=== PATIENT | male | born 1940 | race Caucasian/White ===

== ENCOUNTER 2019-10-05 20:42 | Emergency (ER) | payer MEDICARE, MEDICAID ==
[~2019-10-05] VITALS: Ht 188 cm; Wt 93.0 kg
--- NOTE | 2019-10-05 20:59 | PHYS DOC ---
Past Medical History Past Medical History: Cancer Smoking Status: Unknown if ever smoked Drug Use: None General Adult EDM: Chief Complaint: CHEST PAIN HPI: HPI: 79-year-old male presents with substernal chest pain that began just prior to arrival. Patient states it is midsternal pain that is been better with 2 nitroglycerin prior to arrival. Patient had ST elevations on EKG prior to arrival and Dog Handler was activated prior to arrival. Patient's pain is moderate right now and was severe at onset. Patient had some shortness of breath as well. Patient does have a history of lymphoma and received chemotherapy yesterday. Review of Systems: Review of Systems: Constitutional: Denies fever or chills. [] Eyes: Denies change in visual acuity. [] HENT: Denies nasal congestion or sore throat. [] Respiratory: Denies cough does complain of mild shortness of breath Cardiovascular: Complains of chest GI: Denies abdominal pain, nausea, vomiting, bloody stools or diarrhea. [] : Denies dysuria. [] Musculoskeletal: Denies back pain or joint pain. [] Integument: Denies rash. [] Neurologic: Denies headache, focal weakness or sensory changes. [] Endocrine: Denies polyuria or polydipsia. [] Lymphatic: Denies swollen glands. [] Psychiatric: Denies depression or anxiety. [] Heart Score: HEART Score for Chest Pain: HEART Score for Chest Pain Response (Comments) Value History Highly Suspicious [address] Depression 2 Age > 65 2 Risk Factors 1 or 2 Risk Factors 1 Troponin >3 x Normal Limit 2 Total 9 Risk Factors: Risk Factors: DM, Current or recent (<one month) smoker, HTN, HLP, family history of CAD, obesity. Risk Scores: Score 0 - 3: 2.5% MACE over next 6 weeks - Discharge Home Score 4 - 6: 20.3% MACE over next 6 weeks - Admit for Clinical Observation Score 7 - 10: 72.7% MACE over next 6 weeks - Early Invasive Strategies Current Medications: Current Medications Medications (Trade) Dose Ordered Sig/Terrell Start Time Stop Time Status Last Admin Dose Admin Heparin Sodium (Porcine) (Heparin Sodium) 4,000 unit 1X ONCE 10/05/19 21:00 10/05/19 21:01 UNV Physical Exam: PE: Constitutional: Well developed, well nourished, mild distress HENT: Normocephalic, atraumatic, bilateral external ears normal, oropharynx moist, no oral exudates, nose normal. [] Eyes: PERRLA, EOMI, conjunctiva normal, no discharge. [] Neck: Normal range of motion, no tenderness, supple, no stridor. [] Cardiovascular:Heart rate regular rhythm, no murmur [] Lungs & Thorax: Bilateral breath sounds clear to auscultation [] Abdomen: Bowel sounds normal, soft, no tenderness, no masses, no pulsatile jerri s. [] Skin: Warm, dry, no erythema, no rash. [] Back: No tenderness, no CVA tenderness. [] Extremities: No tenderness, no cyanosis, no clubbing, ROM intact, no edema. [] Neurologic: Alert and oriented X 3, normal motor function, normal sensory function, no focal deficits noted. [] Psychologic: Affect normal, judgement normal, mood normal. [] EKG: EKG: [] Prehospital EKG interpreted by me sinus rhythm with a rate of [address] elevations in V2 V3 V4 with reciprocal inferior changes EKG in the emergency room showed normal sinus rhythm with a rate of 82 left axis deviation broad-based T waves in the precordial leads as well as 1 and L consistent with acute AR Radiology/Procedures: Radiology/Procedures: [] Course & Med Decision Making: Course & Med Decision Making Pertinent Labs and Imaging studies reviewed. (See chart for details) [] Patient received aspirin prior to arrival as well as nitroglycerin. Patient given 4000 units of heparin here patient will be admitted to the hospital service and go to the Dog Handler for emergent angioplasty. I discussed with Dr. Isabel prior to arrival and upon arrival in the ER. I also discussed the case with the hospitalist who admit the patient. Critical care time was [30] minutes which includes time at bedside, spent in discussion of patient's care with specialist and/or family members, with interpretation of laboratory and/or radiological studies and is exclusive of procedures. Critical care time was [303] minutes exclusive of procedures. Critical conditions STEMI critical interventions STEMI activation, heparin, multiple consults. Dragon Disclaimer: Dragon Disclaimer: This electronic medical record was generated, in whole or in part, using a voice recognition dictation system. Departure Departure Impression: Primary Impression: STEMI (ST elevation myocardial infarction) Disposition: 09 ADMITTED INPATIENT Condition: GUARDED Justicifation of Admission Dx: Justifications for Admission: Justification of Admission Dx: Yes AR: Acute STEMI SEAN JEFF MD Oct 05, 2019 20:59
[2019-10-05] MEDS ORDERED: LIDOCAINE 1% Multi-Dose 20 ML VIAL. ONE (21:06)
[2019-10-05] MEDS ORDERED: fentaNYL PF VIAL 100 MCG/2 ML VIAL ONE (21:06)
[2019-10-05] MEDS ORDERED: MIDAZOLAM HCL/PF 2 MG/2 ML VIAL. ONE (21:06)
[2019-10-05] MEDS ORDERED: IODIXANOL 320 MG/ML 100 ML VIAL. ONE ×2 (21:06→21:55)
[2019-10-05 21:14] LABS: CREATININE ISTAT 1.6 mg/dL (0.5-1.4); HEMOGLOBIN ISTAT 12.9 g/dL (14-18); ION CA ISTAT 1.07 mmol/L (1.13-1.32); POTASSIUM ISTAT 4.8 mmol/L (3.5-5.0)
[2019-10-05 21:17] LABS: BASO % 0 % (0-3); EOS # 0.1 x10^3/uL (0.0-0.7); EOS % 2 % (0-3); HEMATOCRIT 36.9 % (39.0-53.0); HEMOGLOBIN 13.2 g/dL (13.0-17.5); LYMPH # 0.4 x10^3/uL (1.0-4.8); LYMPH % 4 % (24-48); MEAN CORPUSCULAR HEMOGLOBIN 34 pg (25-35); MEAN CORPUSCULAR HGB CONC 36 g/dL (31-37); MEAN CORPUSCULAR VOLUME 94 fL (79-100); MONO # 0.4 x10^3/uL (0.0-1.1); MONO % 4 % (0-9); NEUT # 8.2 x10^3/uL (1.8-7.7); NEUT % 90 % (31-73); PLATELET COUNT 240 x10^3/uL (140-400); RED BLOOD COUNT 3.93 x10^6/uL (4.30-5.70); RED CELL DISTRIBUTION WIDTH 14.5 % (11.5-14.5); WHITE BLOOD COUNT 9.2 x10^3/uL (4.0-11.0)
[2019-10-05 21:24] LABS: PROTHROMBIN TIME PATIENT 12.6 SEC (11.7-14.0)
--- NOTE | 2019-10-05 21:27 | RAD ---
INDICATION: Reason: cp / Spl. Instructions: / History: COMPARISON: None. FINDINGS: Single view of chest obtained. Mediastinal silhouette is mildly prominent with pacemaker. Calcific atherosclerosis. Mild interstitial opacities bilaterally with more confluent component and lung bases IMPRESSION: * Mild interstitial opacities bilaterally with more confluent component at lung bases. Could be secondary to mild edema or interstitial infiltrate. The lung base component could be from atelectasis or infiltrate. Electronically signed by: Ankit Miller MD (10/05/2019 9:24 PM) [id number]
[2019-10-05 21:30] LABS: CALCIUM 8.7 mg/dL (8.5-10.1); CREATININE 1.9 mg/dL (0.7-1.3); GFR 34.3; POTASSIUM 4.8 mmol/L (3.5-5.1)
[2019-10-05] MEDS ORDERED: HEPARIN for IV BOLUS 10,000 UNIT/10 ML VIAL. IV ONE ×2 (21:30→23:00)
[2019-10-05 21:36] LABS: ALBUMIN 3.2 g/dL (3.4-5.0); TOTAL BILIRUBIN 0.5 mg/dL (0.2-1.0); TOTAL PROTEIN 6.5 g/dL (6.4-8.2)
[2019-10-05] MEDS ORDERED: BIVALIRUDIN 250 MG VIAL. IV ONE ×2 (21:39→23:00)
[2019-10-05 21:58] LABS: % BANDS 2 % (0-9); % EOS 2 % (0-5); % LYMPHS 1 % (24-48); % MONOS 5 % (0-10); % SEGS 90 % (35-66); PLT ESTIMATE ADEQUATE (ADEQUATE)
[2019-10-05] MEDS ORDERED: HEPARIN 25,000UTS/250ML PREMIX 250 ML IV ONE (22:22)
[2019-10-05] MEDS ORDERED: HEPARIN for IV BOLUS 10,000 UNIT/10 ML VIAL. ONE (22:23)
[2019-10-05] MEDS ORDERED: HEPARIN 25,000UTS/250ML PREMIX 250 ML IV PRN (22:30)
[2019-10-05] MEDS ORDERED: MIDAZOLAM HCL/PF 2 MG/2 ML VIAL. IV ONE (23:00)
[2019-10-05] MEDS ORDERED: fentaNYL PF VIAL 100 MCG/2 ML VIAL IV ONE (23:00)
[2019-10-05] MEDS ORDERED: LIDOCAINE 1% Multi-Dose 20 ML VIAL. INJ ONE (23:00)
[2019-10-05] MEDS ORDERED: IODIXANOL 320 MG/ML 100 ML VIAL. IART ONE (23:00)
--- NOTE | 2019-10-05 23:21 | PDOC2 ---
CONSULT Date of Consult Date of Consult DATE: 10/05/19 TIME: 23:10 Reason for Consult Reason for Consult: chest pain Referring Physician Referring Physician: Dr. Cortez Identification/Chief Complaint Chief Complaint Chest pain Source Source: Chart review, Patient History of Present Illness Reason for Visit: The patient is an 79 year old male being treated with chemo for lymphoma who developed chest pressure at home. Paramedics were called and his EKG showed anterior ST elevations. He was treated with SL NTG which significantly decreased his pain. In the ER he continues to have pain but it has further decreased. His EKG continues to show anterior ST changes. Past Medical History Cardiovascular: HTN Hepatobiliary: Other (lymphoma) Endocrine: Diabetes Past Surgical History Past Surgical History: Other (Stents to his right lower extremity) Family History Family History: Hypertension Social History No Current Problem List Problem List Problems Medical Problems: (1) STEMI (ST elevation myocardial infarction) Status: Acute Current Medications Current Medications Current Medications Heparin Sodium (Porcine) (Heparin Sodium) 4,000 unit 1X ONCE IV Last administered on 10/05/19at 21:19; Start 10/05/19 at 21:30; Stop 10/05/19 at 21:31; Status DC Fentanyl Citrate (Fentanyl 2ml Vial) 100 mcg STK-MED ONCE .ROUTE ; Start 10/05/19 at 21:06; Stop 10/05/19 at 21:06; Status DC Midazolam HCl (Versed) 2 mg STK-MED ONCE .ROUTE ; Start 10/05/19 at 21:06; Stop 10/05/19 at 21:06; Status DC Iodixanol (Visipaque 320) 100 ml STK-MED ONCE .ROUTE ; Start 10/05/19 at 21:06; Stop 10/05/19 at 21:06; Status DC Lidocaine HCl (Lidocaine 1% 20ml Vial) 20 ml STK-MED ONCE .ROUTE ; Start 10/05/19 at 21:06; Stop 10/05/19 at 21:06; Status DC Heparin Sodium/ Sodium Chloride 1,000 ml @ As Directed STK-MED ONCE .ROUTE ; Start 10/05/19 at 21:06; Stop 10/05/19 at 21:07; Status DC Bivalirudin (Angiomax) 250 mg STK-MED ONCE IV ; Start 10/05/19 at 21:39; Stop 10/05/19 at 21:39; Status DC Iodixanol (Visipaque 320) 100 ml STK-MED ONCE .ROUTE ; Start 10/05/19 at 21:55; Stop 10/05/19 at 21:55; Status DC Heparin Sodium/ Sodium Chloride (HEPARIN for ARTERIAL LINE FLUSH) 1,000 unit 1X ONCE IART Last administered on 10/05/19at 22:48; Start 10/05/19 at 23:00; Stop 10/05/19 at 23:01; Status DC Heparin Sodium/ Sodium Chloride (HEPARIN for ARTERIAL LINE FLUSH) 1,000 unit 1X ONCE IART Last administered on 10/05/19at 22:48; Start 10/05/19 at 23:00; Stop 10/05/19 at 23:01; Status DC Midazolam HCl (Versed) 2 mg 1X ONCE IV ; Start 10/05/19 at 23:00; Stop 10/05/19 at 23:01; Status DC Fentanyl Citrate (Fentanyl 2ml Vial) 100 mcg 1X ONCE IV ; Start 10/05/19 at 23 :00; Stop 10/05/19 at 23:01; Status DC Iodixanol (Visipaque 320) 100 ml 1X ONCE IART Last administered on 10/05/19at 22:49; Start 10/05/19 at 23:00; Stop 10/05/19 at 23:01; Status DC Bivalirudin (Angiomax) 250 mg 1X ONCE IV ; Start 10/05/19 at 23:00; Stop 10/05/19 at 23:01; Status DC Lidocaine HCl (Lidocaine 1% 20ml Vial) 20 ml 1X ONCE INJ Last administered on 10/05/19at 22:49; Start 10/05/19 at 23:00; Stop 10/05/19 at 23:01; Status DC Heparin Sodium/ Dextrose 250 ml @ As Directed STK-MED ONCE IV ; Start 10/05/19 at 22:22; Stop 10/05/19 at 22:22; Status DC Heparin Sodium (Porcine) (Heparin Sodium) 10,000 unit STK-MED ONCE .ROUTE ; Start 10/05/19 at 22:23; Stop 10/05/19 at 22:23; Status DC Heparin Sodium/ Sodium Chloride 500 ml @ As Directed STK-MED ONCE .ROUTE ; Start 10/05/19 at 22:34; Stop 10/05/19 at 22:34; Status DC Heparin Sodium (Porcine) (Heparin Sodium) 2,000 unit 1X ONCE IV ; Start 10/05/19 at 23:00; Stop 10/05/19 at 23:01; Status DC Heparin Sodium/ Dextrose 250 ml @ 10 mls/hr CONT PRN IV PER PROTOCOL; Start 10/05/19 at 22:30 Allergies Allergies: Coded Allergies: No Known Drug Allergies (Unverified , 10/05/19) ROS Respiratory: YES: Shortness of breath Cardiovascular: yes Chest Pain Physical Exam General: mild distress HEENT: Atraumatic Lungs: Other (Mildly decreased breath sounds) Heart: Regular rate Abdomen: Normal bowel sounds Vitals VITALS Vital Signs Date Time Temp Pulse Resp B/P (MAP) Pulse Ox O2 Delivery O2 Flow Rate FiO2 10/05/19 21:15 72 18 148/76 (100) 97 Room Air 10/05/19 20:44 97.4 97.4 Labs Labs Laboratory Tests Test 10/05/19 21:00 10/05/19 21:08 White Blood Count 9.2 x10^3/uL (4.0-11.0) Red Blood Count 3.93 x10^6/uL (4.30-5.70) Hemoglobin 13.2 g/dL (13.0-17.5) Hematocrit 36.9 % (39.0-53.0) Mean Corpuscular Volume 94 fL (79-100) Mean Corpuscular Hemoglobin 34 pg (25-35) Mean Corpuscular Hemoglobin Concent 36 g/dL (31-37) Red Cell Distribution Width 14.5 % (11.5-14.5) Platelet Count 240 x10^3/uL (140-400) Neutrophils (%) (Auto) 90 % (31-73) Lymphocytes (%) (Auto) 4 % (24-48) Monocytes (%) (Auto) 4 % (0-9) Eosinophils (%) (Auto) 2 % (0-3) Basophils (%) (Auto) 0 % (0-3) Neutrophils # (Auto) 8.2 x10^3/uL (1.8-7.7) Lymphocytes # (Auto) 0.4 x10^3/uL (1.0-4.8) Monocytes # (Auto) 0.4 x10^3/uL (0.0-1.1) Eosinophils # (Auto) 0.1 x10^3/uL (0.0-0.7) Basophils # (Auto) 0.0 x10^3/uL (0.0-0.2) Segmented Neutrophils % 90 % (35-66) Band Neutrophils % 2 % (0-9) Lymphocytes % 1 % (24-48) Monocytes % 5 % (0-10) Eosinophils % 2 % (0-5) Platelet Estimate Adequate (ADEQUATE) Prothrombin Time 12.6 SEC (11.7-14.0) Prothromb Time International Ratio 1.0 (0.8-1.1) Activated Partial Thromboplast Time 27 SEC (24-38) Sodium Level 132 mmol/L (136-145) Potassium Level 4.8 mmol/L (3.5-5.1) Chloride Level 98 mmol/L (98-107) Carbon Dioxide Level 23 mmol/L (21-32) Anion Gap 11 (6-14) 19 mmol/L (6-14) Blood Urea Nitrogen 29 mg/dL (8-26) Creatinine 1.9 mg/dL (0.7-1.3) Estimated GFR (Cockcroft-Gault) 34.3 BUN/Creatinine Ratio 15 (6-20) Glucose Level 339 mg/dL (70-99) 326 mg/dL (70-99) Calcium Level 8.7 mg/dL (8.5-10.1) Total Bilirubin 0.5 mg/dL (0.2-1.0) Aspartate Amino Transf (AST/SGOT) 19 U/L (15-37) Alanine Aminotransferase (ALT/SGPT) 27 U/L (16-63) Alkaline Phosphatase 58 U/L (46-116) Troponin I Quantitative 0.336 ng/mL (0.000-0.055) AS-Uqv-W-Type Natriuretic Peptide 822 pg/mL (0-449) Total Protein 6.5 g/dL (6.4-8.2) Albumin 3.2 g/dL (3.4-5.0) Albumin/Globulin Ratio 1.0 (1.0-1.7) Bedside Hemoglobin 12.9 g/dL (14-18) Bedside Hematocrit 38 % (37-52) Bedside Sodium 132 mmol/L (135-145) Bedside Potassium 4.8 mmol/L (3.5-5.0) Bedside Chloride 99 mmol/L (98-110) Bedside Total CO2 19 mmol/L (23-32) Bedside Blood Urea Nitrogen 27 mg/dL (8-26) Bedside Creatinine 1.6 mg/dL (0.5-1.4) Bedside Ionized Calcium (Michelle) 1.07 mmol/L (1.13-1.32) Laboratory Tests Test 10/05/19 21:00 10/05/19 21:08 White Blood Count 9.2 x10^3/uL (4.0-11.0) Red Blood Count 3.93 x10^6/uL (4.30-5.70) Hemoglobin 13.2 g/dL (13.0-17.5) Hematocrit 36.9 % (39.0-53.0) Mean Corpuscular Volume 94 fL (79-100) Mean Corpuscular Hemoglobin 34 pg (25-35) Mean Corpuscular Hemoglobin Concent 36 g/dL (31-37) Red Cell Distribution Width 14.5 % (11.5-14.5) Platelet Count 240 x10^3/uL (140-400) Neutrophils (%) (Auto) 90 % (31-73) Lymphocytes (%) (Auto) 4 % (24-48) Monocytes (%) (Auto) 4 % (0-9) Eosinophils (%) (Auto) 2 % (0-3) Basophils (%) (Auto) 0 % (0-3) Neutrophils # (Auto) 8.2 x10^3/uL (1.8-7.7) Lymphocytes # (Auto) 0.4 x10^3/uL (1.0-4.8) Monocytes # (Auto) 0.4 x10^3/uL (0.0-1.1) Eosinophils # (Auto) 0.1 x10^3/uL (0.0-0.7) Basophils # (Auto) 0.0 x10^3/uL (0.0-0.2) Segmented Neutrophils % 90 % (35-66) Band Neutrophils % 2 % (0-9) Lymphocytes % 1 % (24-48) Monocytes % 5 % (0-10) Eosinophils % 2 % (0-5) Platelet Estimate Adequate (ADEQUATE) Prothrombin Time 12.6 SEC (11.7-14.0) Prothromb Time International Ratio 1.0 (0.8-1.1) Activated Partial Thromboplast Time 27 SEC (24-38) Sodium Level 132 mmol/L (136-145) Potassium Level 4.8 mmol/L (3.5-5.1) Chloride Level 98 mmol/L (98-107) Carbon Dioxide Level 23 mmol/L (21-32) Anion Gap 11 (6-14) 19 mmol/L (6-14) Blood Urea Nitrogen 29 mg/dL (8-26) Creatinine 1.9 mg/dL (0.7-1.3) Estimated GFR (Cockcroft-Gault) 34.3 BUN/Creatinine Ratio 15 (6-20) Glucose Level 339 mg/dL (70-99) 326 mg/dL (70-99) Calcium Level 8.7 mg/dL (8.5-10.1) Total Bilirubin 0.5 mg/dL (0.2-1.0) Aspartate Amino Transf (AST/SGOT) 19 U/L (15-37) Alanine Aminotransferase (ALT/SGPT) 27 U/L (16-63) Alkaline Phosphatase 58 U/L (46-116) Troponin I Quantitative 0.336 ng/mL (0.000-0.055) XS-Sda-B-Type Natriuretic Peptide 822 pg/mL (0-449) Total Protein 6.5 g/dL (6.4-8.2) Albumin 3.2 g/dL (3.4-5.0) Albumin/Globulin Ratio 1.0 (1.0-1.7) Bedside Hemoglobin 12.9 g/dL (14-18) Bedside Hematocrit 38 % (37-52) Bedside Sodium 132 mmol/L (135-145) Bedside Potassium 4.8 mmol/L (3.5-5.0) Bedside Chloride 99 mmol/L (98-110) Bedside Total CO2 19 mmol/L (23-32) Bedside Blood Urea Nitrogen 27 mg/dL (8-26) Bedside Creatinine 1.6 mg/dL (0.5-1.4) Bedside Ionized Calcium (Michelle) 1.07 mmol/L (1.13-1.32) Assessment/Plan Assessment/Plan 1. Probable STEMI. Pain improved but still present. Treated with ASA and heparin. Recommend emergent cath and possible PCI. The patient has agreed to proceed. 2. Lymphoma. Receiving chemotherapy. Patient reports a routine negative Covid test 2 days ago. 3. HTN. Continue medications and monitor. 4. DM. Obtain records. Monitor labs. AMAURI KING MD Oct 05, 2019 23:21
[2019-10-05 23:28] VITALS: BP 146/73
--- NOTE | 2019-10-06 13:35 | CARD ---
MR#: [id number] Date of Study: 10/05/2019 Ordering Physician: AMAURI NARAYAN, Referring Physician: AMAURI NARAYAN, Tech: Stacy Barraza, RT (R) APPROVED REPORT Procedures Left heart catheterization Left ventriculogram Selective coronary angiogram Attempted PCI of the LAD The patient is an 79-year-old male who is undergoing chemotherapy for lymphoma and has a history of a permanent pacemaker. He developed chest pain approximately 2 hours prior to being brought by marco ugalde to the emergency room. Patient received nitroglycerin in route which significantly decreased his pain. His in route EKG showed ST elevation in the anterior leads and a STEMI protocol was initiated . Upon arrival the patient was met esvin repeat EKG again showed ST elevation in the anterior leads. The patient was examined. Cardiac catheterization and possible intervention were discussed with the patient including risks and benefits. He agreed to proceed. The patient was brought immediately to the cardiac catheterization lab. The area of the right femora l artery was prepared in the usual manner with Betadine, sterile draping and local anesthetic. The p atient developed some shortness of breath and was placed on a non-rebreather which greatly improved h is shortness of breath. An 18-gauge needle was used to enter the right femoral artery, a wire placed and a 6 [place] sheath placed over the wire. Once we obtained access we identified diffuse stenting in his right lower extremity system. This was crossed with a angled guidewire and a 6 [place] s right diagnostic catheter was advanced to the ascending aorta. It was used to engage the right cor onary artery and sequential injections in various views were obtained. Using an exchange J-wire a XB 3.5 guide was used to engage the left system and sequential injections were performed. The patient was found to have a calcified subtotal and complex lesion in the proximal LAD involving a diagonal an d septal branch. We proceeded to attempt to revascularize the vessel. Angiomax as per protocol was administered. Initially a Hi-Torque wire was used to attempt to cross t he lesion. However I was unable to pass a wire distally into the LAD due to the nature of the lesion . Next a PT choice wire was attempted which again was unsuccessful. A whisper wire was attempted an d was not successful. We then returned to the Hi-Torque wire which again was unable to cross the les ion. During this time the patient remained hemodynamically stable and his rhythm remained stable. H is pain was also improved. After repeated attempts I felt that further more aggressive attempts may close his left anterior descending which still had distal flow and therefore further attempts were no t performed. The guide was removed and a pigtail catheter was placed to the ascending aorta. It was passed to the left ventricle. A 30 degree GUEVARA left ventriculogram was performed. Pullback pressure s were measured. The catheter was removed from the patient. We contacted [facility] and I spoke to the appraisal analyst, cardiac surgeon and hospitalist. We then arrange for the ester ent to be transferred there for possible bypass surgery. The sheath was sutured in place after upsiz ing to a 7 [place] sheath. Angiomax was discontinued and the patient was placed on heparin. His rhyt hm remained stable as well as his hemodynamics. Findings Coronaries Left main. The left main was a calcified vessel with no significant lesions. Left anterior descending. The LAD had a calcified complex severe proximal lesion as detailed above. Left circumflex. The left circumflex was a larger dominant vessel with distal 20% disease. Right coronary artery. The right coronary artery was a small nondominant vessel with a proximal 20% lesion Left ventriculogram. The left ventricle had severe distal anterior and apical hypokinesis. Ejection fraction was estimate d at 30 to 35%. Hemodynamics. LV pressure of 162/16, 30. Aortic root pressure of 160/80 <Conclusion> Severe single-vessel coronary disease with a proximal LAD lesion as identified above. Mild disease in the left circumflex and right coronary arteries. Severely decreased LV systolic function with an ejection fraction of 30 to 35%. Elevated left ventricular EDP. Fluoroscopy time 13.9 minutes Dose 73 GYcm2 Contrast 162 ml Sedation 55 minutes Signed by : Amauri Narayan MD Electronically Approved : 10/06/2019 13:34:50
--- NOTE | 2019-10-09 09:20 | EKG ---
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
== END 2019-10-05 21:20 | disposition other institution (70) ==
LOC: ER 20:42
DX: I21.3 ST elevation (STEMI) myocardial infarction of unspecified site (principal); R06.02 Shortness of breath
CPT/HCPCS: 36415; 71045; 80047; 80053; 83880; 84484; 85007; 85025; 85610; 85730; 93005; 93458; 96374; 99291; C1769; C1887; C1892; J0583; J1644; J2250; J3010; J3490; Q9967; 94660; 96361; 96375; 99152; 99153; 99285-25